=== PATIENT | male | born 2000 | race Caucasian/White ===

== ENCOUNTER → 2024-12-29 | Emergency (ER) | payer BC ==
[~2024-12-29] VITALS: Ht 170.2 cm; Wt 81.6 kg
[~2024-12-29] MED LIST: ACETAMINOPHEN 500 MG TABLET ONE; NEOMY/BACITRA/POLYMYXIN B OINT UD PACKET TP ONE
[2024-12-29] MEDS: ACETAMINOPHEN 500 MG TABLET PO ONE (21:04)
[2024-12-29] MEDS: NEOMY/BACITRA/POLYMYXIN B OINT UD PACKET TP ONE (21:05)
[2024-12-29 22:21] VITALS: BP 136/86; O2SAT 98
== END | disposition home or self-care (01) ==
LOC: ER 20:38
DX: S06.0XAA Concussion with loss of consciousness status unknown, initial encounter (principal); S16.1XXA Strain of muscle, fascia and tendon at neck level, initial encounter; S29.012A Strain of muscle and tendon of back wall of thorax, initial encounter; S60.221A Contusion of right hand, initial encounter; S80.02XA Contusion of left knee, initial encounter; V43.52XA Car driver injured in collision with other type car in traffic accident, initial encounter; Y93.89 Activity, other specified; Y92.488 Other paved roadways as the place of occurrence of the external cause; Y99.8 Other external cause status
CPT/HCPCS: 72072; 73120; A4606; A4663; A9150